=== PATIENT | female | born 1980 | race African-American/Black ===

== ENCOUNTER 2016-09-02 10:26 | Emergency (ER) | payer SELFPAY ==
[~2016-09-02] VITALS: Ht 152.4 cm; Wt 59.0 kg
[~2016-09-02 10:26] MED LIST: IBUP-1007 PO
[2016-09-02] MEDS ORDERED: IV NORMAL SALINE 1000ML BAG 1,000 ML IV SCH (11:29)
[2016-09-02] MEDS ORDERED: ONDANSETRON PF 4 MG/2 ML VIAL. IV ONE (11:30)
--- NOTE | 2016-09-02 11:38 | PHYS DOC ---
Past Medical History Past Medical History: No Pertinent History Past Surgical History: No Surgical History Alcohol Use: Occasionally Drug Use: None Adult General Chief Complaint Chief Complaint: FLU SYMPTOM HPI HPI Patient is a 36 year old female who presents the emergency room today with complaint of nausea and vomiting with epigastric discomfort secondary to the vomiting that began approximately 4 days ago. Patient denies any history gastrointestinal disease. She denies any history of bowel obstructions or previous abdominal surgeries. She reports last by mouth intake was yesterday. There have been no known ill contacts, hospitalization or antibiotic use in the past 30 days. Patient reports that her last menstrual period was June 28. She states that she has not perform a home test. Patient denies any lower abdominal pain, pelvic pain, vaginal bleeding or vaginal discharge. Patient denies dysuria or hematuria. Review of Systems Review of Systems Constitutional: Patient reports chills and generalized weakness. She denies any syncopal episodes. Eyes: Denies change in visual acuity, redness, or eye pain [] HENT: Denies nasal congestion or sore throat [] Respiratory: Denies cough or shortness of breath [] Cardiovascular: No additional information not addressed in HPI [] GI: Patient reports nonbloody, nonbilious emesis. Patient reports epigastric cramping. Patient denies lower abdominal pain. Patient reports last bowel movement was 2 days ago. : Patient denies dysuria, hematuria, pelvic pain, vaginal bleeding or vaginal discharge. Last menstrual period was reported as June 28, 2016. Musculoskeletal: Denies back pain or joint pain [] Integument: Denies rash or skin lesions [] Neurologic: Denies headache, focal weakness or sensory changes [] Endocrine: Denies polyuria or polydipsia [] Current Medications Current Medications Current Medications Medications (Trade) Dose Ordered Sig/Varun Start Time Stop Time Status Last Admin Dose Admin Diphenhydramine HCl (Benadryl) 50 mg STK-MED ONCE 09/02/16 12:54 09/02/16 12:55 DC Metoclopramide HCl (Reglan) 10 mg STK-MED ONCE 09/02/16 12:54 09/02/16 12:55 DC Ondansetron HCl (Zofran) 4 mg 1X ONCE 09/02/16 11:30 09/02/16 11:34 DC 09/02/16 11:47 4 MG Sodium Chloride (Iv Sodium Chloride 0.9% 1000ml Bag) 1,000 ml @ 1,000 mls/hr Q1H 09/02/16 11:29 09/02/16 12:28 DC 09/02/16 11:47 1,000 MLS/HR Allergies Allergies Allergies Coded Allergies Type Severity Reaction Last Updated Verified No Known Drug Allergies 07/25/13 No Physical Exam Physical Exam Constitutional: Well developed, well nourished, no acute distress, non-toxic appearance. Patient received 4 mg of Zofran IV. She is not actively vomiting at this time. HENT: Normocephalic, atraumatic, bilateral external ears normal, oropharynx moist, no oral exudates, nose normal. [] Eyes: PERRLA, EOMI, conjunctiva normal, no discharge. [] Neck: Normal range of motion, no tenderness, supple, no stridor. [] Cardiovascular:Heart rate regular rhythm, no murmur [] Lungs & Thorax: Bilateral breath sounds clear to auscultation [] Abdomen: Abdomen is soft and nondistended. There are normoactive bowel sounds in all 4 quadrants. There is mild tenderness in the epigastric region without palpable defect to the abdominal wall or pulsatile mass. There is no voluntary involuntary guarding. Skin: Warm, dry, no erythema, no rash. [] Back: No tenderness, no CVA tenderness. [] Extremities: No tenderness, no cyanosis, no clubbing, ROM intact, no edema. [] Neurologic: Alert and oriented X 3, normal motor function, normal sensory function, no focal deficits noted. [] Psychologic: Affect normal, judgement normal, mood normal. [] Current Patient Data Vital Signs Vital Signs Date Time Temp Pulse Resp B/P Pulse Ox O2 Delivery O2 Flow Rate FiO2 09/02/16 13:30 71 20 109/72 100 Room Air 09/02/16 10:59 98.2 98.2 Lab Values Laboratory Tests Test 09/02/16 11:20 09/02/16 11:50 Urine Collection Type Unknown Urine Color [place] Urine Clarity Clear Urine pH 6.0 Urine Specific [place] >=1.030 Urine Protein Negativemg/dL (NEG-TRACE) Urine Glucose (UA) Negativemg/dL (NEG) Urine Ketones (Stick) >=80mg/dL (NEG) Urine Blood Negative (NEG) Urine Nitrite Negative (NEG) Urine Bilirubin Small (NEG) Urine Urobilinogen Dipstick 1.0mg/dL (0.2 mg/dL) Urine Leukocyte Esterase Negative (NEG) Urine RBC Occ/HPF (0-2) Urine WBC 0/HPF (0-4) Urine Squamous Epithelial Cells Mod/LPF Urine Bacteria 0/HPF (0-FEW) Urine Mucus Marked/LPF Urine Test Positive (NEG) White Blood Count 13.4x10^3/uL (4.0-11.0) H Red Blood Count 4.36x10^6/uL (3.50-5.40) Hemoglobin 11.8g/dL (12.0-15.5) L Hematocrit 36.4% (36.0-47.0) Mean Corpuscular Volume 83fL (79-100) Mean Corpuscular Hemoglobin 27pg (25-35) Mean Corpuscular Hemoglobin Concent 32g/dL (31-37) Red Cell Distribution Width 14.0% (11.5-14.5) Platelet Count 257x10^3/uL (140-400) Neutrophils (%) (Auto) 67% (31-73) Lymphocytes (%) (Auto) 22% (24-48) L Monocytes (%) (Auto) 10% (0-9) H Eosinophils (%) (Auto) 0% (0-3) Basophils (%) (Auto) 1% (0-3) Neutrophils # (Auto) 9.0x10^3uL (1.8-7.7) H Lymphocytes # (Auto) 2.9x10^3/uL (1.0-4.8) Monocytes # (Auto) 1.4x10^3/uL (0.0-1.1) H Eosinophils # (Auto) 0.0x10^3/uL (0.0-0.7) Basophils # (Auto) 0.1x10^3/uL (0.0-0.2) Sodium Level 140mmol/L (136-145) Potassium Level 3.1mmol/L (3.5-5.1) L Chloride Level 103mmol/L (98-107) Carbon Dioxide Level 27mmol/L (21-32) Anion Gap 10 (6-14) Blood Urea Nitrogen 7mg/dL (7-20) Creatinine 0.8mg/dL (0.6-1.0) Estimated GFR (Cockcroft-Gault) 97.1 BUN/Creatinine Ratio 9 (6-20) Glucose Level 73mg/dL (70-99) Calcium Level 9.0mg/dL (8.5-10.1) Total Bilirubin 0.4mg/dL (0.2-1.0) Aspartate Amino Transferase (AST) 13U/L (15-37) L Alanine Aminotransferase (ALT) 13U/L (14-59) L Alkaline Phosphatase 62U/L (46-116) Total Protein 7.6g/dL (6.4-8.2) Albumin 3.4g/dL (3.4-5.0) Albumin/Globulin Ratio 0.8 (1.0-1.7) L Lipase 68U/L (73-393) L Laboratory Tests 09/02/16 11:50 Laboratory Tests 09/02/16 11:50 EKG EKG [] Radiology/Procedures Radiology/Procedures [] Course & Med Decision Making Course & Med Decision Making Patient had a breakthrough episode of emesis after she had received 4 mg of Zofran via EMS and here in the emergency department. Patient received 10 mg of Reglan and 25 mg of Benadryl IV. I reevaluated the patient at 1310. Patient was sleepy. She reports that she felt "better". I informed the patient that her laboratory test here today indicate no evidence of infection or organ dysfunction. Patient states that she does have an shell trim operator that she will call in the morning to follow-up with. Dragon Disclaimer Dragon Disclaimer This electronic medical record was generated, in whole or in part, using a voice recognition dictation system. Departure Departure Impression: Primary Impression: Positive test Additional Impression: Nausea and vomiting Condition: IMPROVED Referrals: TIFFANI SHARMA MD (PCP) Patient Instructions: Nausea and Vomiting, [id number], Additional Instructions: 1. As discussed, your test here today is positive. 2. Take the medication as prescribed. 3. Avoid trying to eat solid foods for the next 2 days. Drink clear liquids, non -caffeinated beverages, soups and broths. 4. Review the discharge instructions; especially reasons to return to the emergency department. 5. Call your TOLL GATE KEEPER in the morning to schedule follow-up appointment. Scripts Vits W-Ca,Fe,Fa(<1MG) ( Vitamins)1 Each Tablet1 Tab PO DAILY # 90 TAB Ref 3 Prov:SANDRA SWAIN 09/02/16 Metoclopramide Hcl (Reglan)10 Mg Tablet1 Tab PO TID nausea and vomiting #21 TAB Prov:SANDRA SWAIN 09/02/16 Problem Qualifiers SANDRA SWAIN Sep 02, 2016 11:38
[2016-09-02 11:40] LABS: NEG OBC UR NEG; POS OBC UR POS
[2016-09-02 11:59] LABS: BASO # 0.1 x10^3/uL (0.0-0.2); BASO % 1 % (0-3); EOS % 0 % (0-3); HEMATOCRIT 36.4 % (36.0-47.0); HEMOGLOBIN 11.8 g/dL (12.0-15.5); LYMPH # 2.9 x10^3/uL (1.0-4.8); LYMPH % 22 % (24-48); MEAN CORPUSCULAR HEMOGLOBIN 27 pg (25-35); MEAN CORPUSCULAR HGB CONC 32 g/dL (31-37); MEAN CORPUSCULAR VOLUME 83 fL (79-100); MONO % 10 % (0-9); NEUT % 67 % (31-73); PLATELET COUNT 257 x10^3/uL (140-400); RED BLOOD COUNT 4.36 x10^6/uL (3.50-5.40); WHITE BLOOD COUNT 13.4 x10^3/uL (4.0-11.0)
[2016-09-02 12:12] LABS: CREATININE 0.8 mg/dL (0.6-1.0); GFR 97.1; POTASSIUM 3.1 mmol/L (3.5-5.1)
[2016-09-02 12:12] LABS: BILIRUBIN,URINE SMALL (NEG); GLUCOSE,URINE NEGATIVE (NEG); NITRITE,URINE NEGATIVE (NEG)
[2016-09-02 12:18] LABS: ALBUMIN 3.4 g/dL (3.4-5.0); ALBUMIN/GLOBULIN RATIO 0.8 (1.0-1.7); TOTAL BILIRUBIN 0.4 mg/dL (0.2-1.0); TOTAL PROTEIN 7.6 g/dL (6.4-8.2)
[2016-09-02 12:34] LABS: BACTERIA,URINE 0 /HPF (0-FEW); PROTEIN,URINE NEGATIVE (NEG-TRACE); RBC,URINE OCC /HPF (0-2); SQUAMOUS EPITHELIAL CELL,UR MOD /LPF; WBC,URINE 0 /HPF (0-4)
[2016-09-02] MEDS ORDERED: DIPHENHYDRAMINE 50 MG/ML VIAL ONE (12:54)
[2016-09-02] MEDS ORDERED: METOCLOPRAMIDE HCL 10 MG/2 ML VIAL. ONE (12:54)
[2016-09-02] MEDS ORDERED: METOCLOPRAMIDE HCL 10 MG/2 ML VIAL. IV ONE (13:15)
[2016-09-02] MEDS ORDERED: DIPHENHYDRAMINE 50 MG/ML VIAL IVP ONE (13:15)
[2016-09-02] MEDS ORDERED: METO10TA81 PO (13:20)
[2016-09-02] MEDS ORDERED: PREN1TAB58 PO (13:20)
[2016-09-02 13:30] VITALS: BP 109/72
== END 2016-09-02 13:35 | disposition home or self-care (01) ==
LOC: ER 10:26
DX: O21.0 Mild hyperemesis gravidarum (principal); O26.899 Other specified pregnancy related conditions, unspecified trimester; R53.1 Weakness; R10.13 Epigastric pain; Z3A.00 Weeks of gestation of pregnancy not specified
CPT/HCPCS: 36415; 80053; 81001; 81025; 83690; 85027; 96361; 96374; 96375; 99285; J1200; J2405; J2765; J7030